=== PATIENT | female | born 1995 | race Caucasian/White ===

== ENCOUNTER 2024-05-27 18:05 | Emergency (ER) | payer BC ==
[~2024-05-27] VITALS: Ht 160 cm; Wt 81.6 kg
[2024-05-27] MEDS: ETOMIDATE 20 MG/10 ML VIAL IV ONE
[2024-05-27] MEDS ORDERED: CIPR10DR5 RIGHT EAR (22:03)
[2024-05-27] MEDS ORDERED: ETOMIDATE 20 MG/10 ML VIAL ONE (23:28)
[2024-05-28] MEDS ORDERED: ETOMIDATE 20 MG/10 ML VIAL ONE (00:04)
[2024-05-28 02:11] VITALS: BP 124/75; TEMP 98; O2SAT 100
== END 2024-05-28 02:12 | disposition home or self-care (01) ==
LOC: ER 18:09
DX: T16.1XXA Foreign body in right ear, initial encounter (principal); H92.01 Otalgia, right ear; Z87.59 Personal history of other complications of pregnancy, childbirth and the puerperium; W44.8XXA Other foreign body entering into or through a natural orifice, initial encounter; Y93.89 Activity, other specified; Y92.89 Other specified places as the place of occurrence of the external cause; Y99.8 Other external cause status
CPT/HCPCS: 70250; 70480; A4606; A4663; G0500; J3490; J7040